=== PATIENT | male | born 1965 | race Caucasian/White ===

== ENCOUNTER 2019-12-08 09:37 | Day surgery (SDC) | payer BC ==
[2019-12-07 09:57] VITALS: BMI 34.1
--- NOTE | 2019-12-07 10:46 | HP ---
HISTORY AND PHYSICAL CHIEF COMPLAINT: Right knee pain. 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 It has worsened recently. She notes intermittent giving way along with swelling. He has had multiple aspirations of the knee with temporary relief. He has also been on anti-inflammatories with temporary relief. PAST MEDICAL HISTORY: Negative. PAST SURGICAL HISTORY: Negative. CURRENT MEDICATIONS: Ibuprofen. He notes allergies to CODEINE. FAMILY HISTORY: Significant for cancer. SOCIAL HISTORY: Significant for 1 pack per day tobacco use. He also admits to social alcohol use. 16 POINT REVIEW OF SYSTEMS: Otherwise reviewed and is noncontributory. PHYSICAL EXAMINATION: On examination, the patient is approximately 5 foot 5, 200 pounds of endomorphic habitus. HEENT: Exam is nonfocal. NECK: Supple. He has painless passive motion of the right hip. Straight leg raise is negative, active motion right knee -10 to 115 degrees of flexion. He has a mild effusion. He is tender about the medial joint line. Collaterals are stable, Andrew is negative, Shawnee's elicits medial pain. His distal neurovascular appears intact in the right lower extremity. MRI report of the right knee shows evidence of a posterior medial meniscal tear along with medial compartment degenerative changes. There are also patellofemoral degenerative changes. IMPRESSION: 1. Right knee internal derangement with symptomatic medial meniscal tear. 2. Right knee medial and patellofemoral compartment osteoarthrosis. RECOMMENDATIONS: I talked to the patient at length regarding his condition and treatment options. At this point, he is having significant pain and mechanical symptoms despite previous conservative measures that limit him. After thorough discussion, he opts to proceed with surgery. We will plan to proceed with arthroscopy of the right knee with possible partial medial meniscectomy. Risks and benefits were discussed at length in layman's terms. We will likely perform that as an outpatient procedure. MMODL / IJN: [id number] /
[~2019-12-08 09:37] MED LIST: DEXAMETHASONE SOD PHOSPHATE 10 MG/ML 1 ML VIAL IV ONE; LACTATED RINGERS 1,000 ML IV SCH; LIDOCAINE 1% (10MG/ML) FOR IV START INTRADERMA PRN; MIDAZOLAM 2 MG/2 ML VIAL IV PRN; ONDANSETRON 4 MG/2 ML VIAL IVP ONE
[2019-12-08 10:52] VITALS: TEMP 98.2
[2019-12-08] MEDS ORDERED: MIDAZOLAM 2 MG/2 ML VIAL ONE (12:13)
[2019-12-08] MEDS ORDERED: LIDOCAINE 1% INJ 10MG/ML (20 ML MDV) ONE (12:13)
[2019-12-08] MEDS ORDERED: PHENYLEPHRINE-0.9% NACL SYG 1 MG/10 ML SYRINGE ONE (12:13)
[2019-12-08] MEDS ORDERED: fentaNYL (PF) 50 MCG/ML 2 ML AMP ONE (12:13)
[2019-12-08] MEDS ORDERED: PROPOFOL 10 MG/ML 20 ML VIAL IV ONE (12:13)
[2019-12-08] MEDS ORDERED: SUCCINYLCHOLINE CHLORIDE 100 MG/5 ML SYR IV ONE (12:13)
--- NOTE | 2019-12-08 13:13 | P.OP ---
Date of Procedure: 12/08/19 Preoperative Diagnosis: Right knee symptomatic medial meniscal tear Postoperative Diagnosis: Posterior medial meniscal tear along with chondrocalcinosis of the medial, lateral and patellofemoral compartments Procedure(s) Performed: Right knee arthroscopic partial medial meniscectomy/partial synovectomy of the medial, lateral, and patellofemoral compartments Anesthesia: FLORINA Surgeon: Francois Acosta Estimated Blood Loss (ml): 10 Pathology: none sent Condition: stable Disposition: PACU Indications for Procedure: The patient's a 54-year-old male presents with progressive right knee pain and mechanical symptoms despite conservative treatment. A discussion of the risks and benefits of operative intervention versus continued conservative measures was made with patient. He opted to proceed with surgery. Operative risks to include infection, neurovascular injury, development of blood clots, possible incomplete resolution of symptoms, possible worsening symptoms and need for subsequent procedures was discussed. Informed consent was obtained. Operative Findings: As below Description of Procedure: The patient was brought to the operating room, and after induction of general anesthesia examined the right knee. Collaterals were stable, Andrew was negative, and posterior drawer was negative. The right lower extremity was prepped and draped in a normal fashion. A superior lateral portal was made through a 3 mm skin incision superior and lateral to the patella. This was used for outflow. A lateral portal was made through a 5 mm vertical skin incision lateral to the patella tendon above the joint line. Diagnostic arthroscopy was performed. On inspection of the medial compartment, a complex tear involving the posterior horn of the medial meniscus in the white-red junction was noted.. This was debrided back to stable base with straight baskets and a motorized shaver. A 0.5 x 0.5 cm loose body was noted in the posterior lateral back to the medial compartment. This was removed with a grasper. Chondrocalcinosis was noted was significant synovitis of the medial, lateral, and patellofemoral compartments. This was debrided with a motorized shaver. On inspection of the notch, the anterior cruciate ligament appeared to be intact. On inspection of the lateral compartment, again there was chondrocalcinosis and reactive synovitis. The lateral meniscus was stable and intact. On inspection of the patellofemoral articulation, there was reactive synovitis and chondral fibrillation.. The gutters were clear debris. The knee was then thoroughly irrigated. The portals were closed with Steri-Strips. A sterile dressing was applied in addition to a compression stocking. The patient was awoken from general anesthesia and transferred to recovery room in good condition. Blood loss was estimated at 10 mL. No complications were incurred.
[2019-12-08] MEDS: HYDROmorphone 0.5 MG/0.5 ML SYRINGE IVP PRN ×3 (13:24→13:35)
[2019-12-08] MEDS ORDERED: KETOROLAC 30 MG/ML 1 ML VIAL IVP ONE (13:40)
[2019-12-08] MEDS: fentaNYL (PF) 50 MCG/ML 2 ML AMP IVP ONE ×2 (13:40→13:50)
[2019-12-08 14:33] VITALS: RESP 16
[2019-12-08] MEDS ORDERED: HYDROcodone/APAP 7.5-325MG 1 EACH TAB PO ONE (14:49)
[2019-12-08 15:08] VITALS: BP 130/73; PULSE 77
== END 2019-12-08 15:26 | disposition home or self-care (01) ==
LOC: OR 09:37
PROVIDERS: ATTEND Orthopaedic Surgery
DX: S83.241A Other tear of medial meniscus, current injury, right knee, initial encounter (principal); X58.XXXA Exposure to other specified factors, initial encounter; M11.261 Other chondrocalcinosis, right knee; K21.9 Gastro-esophageal reflux disease without esophagitis; Z80.9 Family history of malignant neoplasm, unspecified; F17.210 Nicotine dependence, cigarettes, uncomplicated; I10 Essential (primary) hypertension; G47.33 Obstructive sleep apnea (adult) (pediatric); Z99.89 Dependence on other enabling machines and devices; E66.9 Obesity, unspecified; Z68.34 Body mass index [BMI] 34.0-34.9, adult; Z79.899 Other long term (current) drug therapy; Z79.1 Long term (current) use of non-steroidal anti-inflammatories (NSAID); Z88.5 Allergy status to narcotic agent
CPT/HCPCS: 29881; 29876; J2250; J1100; J0690; J2405; J2001; J3010; J1885; J2370; J0330; J2704; J1170

== ENCOUNTER → 2020-02-19 | Outpatient (CLI) | payer BC ==
--- NOTE | 2020-02-21 12:01 | MR ---
EXAMINATION TYPE: MR knee LT wo con DATE OF EXAM: 02/19/2020 COMPARISON: Left knee January 21, 2020. HISTORY: Left knee and her pain with locking and swelling for 1 year per patient, history of prior in the surgery per patient TECHNIQUE: Multiplanar, multisequence images of the knee is performed without IV contrast. FINDINGS: MEDIAL MENISCUS: Anterior horn is intact without tear. There is oblique irregular increased signal wi th vertical component posterior horn medial meniscus extending to superior articular surface sagittal image 26 and coronal image 21. LATERAL MENISCUS: Anterior and posterior horns are intact without tear. CRUCIATE LIGAMENTS: The anterior and posterior cruciate ligaments are intact and unremarkable. COLLATERAL LIGAMENTS: The medial collateral ligament and lateral collateral ligament complex are inta ct and unremarkable. EXTENSOR MECHANISM: Visualized quadriceps and patellar tendons are intact. EFFUSION: There is moderate size suprapatellar joint effusion. POPLITEAL CYST: There is moderate size popliteal/bowers cyst measuring 5.7 cm long axis sagittal image 26. TRICOMPARTMENT SPACES: Mild to moderate narrowing patellofemoral compartment with [id number] sp urring. Mild narrowing medial and lateral tibiofemoral compartments. CARTILAGE: Some chondromalacia patella with some fissuring and cartilaginous loss along the posterior patellar pole. Cartilage fairly well-preserved medial and lateral tibiofemoral compartments. BONE MARROW SIGNAL: No focal abnormal marrow signal is appreciated. OTHER: No additional significant abnormality is appreciated. IMPRESSION: 1. Complex full-thickness tear posterior horn of medial meniscus. 2. Tricompartment degenerative changes greatest patellofemoral compartment where fairly moderate in a ppearance as detailed above. 3. Moderate-sized suprapatellar joint effusion. 4. Moderate sized popliteal cyst.
== END | disposition home or self-care (01) ==
LOC: RADMRIMAIN 07:48
PROVIDERS: ATTEND Orthopaedic Surgery
DX: S83.232A Complex tear of medial meniscus, current injury, left knee, initial encounter (principal); M17.12 Unilateral primary osteoarthritis, left knee

== ENCOUNTER 2020-03-04 08:42 | Day surgery (SDC) | payer BC ==
[2020-03-02 10:54] VITALS: BMI 33.0
--- NOTE | 2020-03-03 09:16 | HP ---
HISTORY AND PHYSICAL CHIEF COMPLAINT: Left knee pain. 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 He notes medial pain along with giving way. He has had intermittent large swelling. He has tried medications in addition to home exercises and anti- inflammatories and injections without much relief. PAST MEDICAL HISTORY: Negative. PAST SURGICAL HISTORY: Significant for right knee arthroscopy. CURRENT MEDICATION: Ibuprofen. He has allergies to CODEINE. FAMILY HISTORY: Significant for cancer. SOCIAL HISTORY: Significant for 1 pack per day tobacco use and social alcohol use. 16 POINT REVIEW OF SYSTEMS: Otherwise reviewed and is noncontributory. PHYSICAL EXAMINATION: On examination, the patient is approximately 5 foot 5, 205 pounds of endomorphic habitus. HEENT: Exam is nonfocal. NECK: Supple. He has painless passive motion left hip. Straight leg raise is negative. Active motion left knee -10 to 115 degrees of flexion. He has mild effusion. He is tender about the medial joint line. Collaterals are stable, Andrew is negative, Shawnee's elicits medial pain. He has genu varum alignment. His distal neurovascular appears intact in the left lower extremity. MRI report 02/19/2020, left knee shows a posterior medial meniscal tear along with degenerative changes involving the medial and patellofemoral compartments. IMPRESSION: Left knee internal derangement with symptomatic medial meniscal tear. RECOMMENDATIONS: I talked to the patient at length regarding his condition along with treatment options. At this point, he is having significant pain and mechanical symptoms along with giving way despite conservative measures. After thorough discussion, he opts to proceed with surgery. We will plan to proceed with arthroscopic evaluation with probable partial medial meniscectomy. The risks and benefits were discussed at length in layman's terms. We will likely perform that as an outpatient procedure. MMODL / IJN: [id number] /
[~2020-03-04 08:42] MED LIST changes: +HYDROmorphone 0.5 MG/0.5 ML SYRINGE IVP PRN; +fentaNYL (PF) 50 MCG/ML 2 ML AMP IVP PRN
[2020-03-04] MEDS ORDERED: MIDAZOLAM 2 MG/2 ML VIAL ONE (09:20)
[2020-03-04] MEDS ORDERED: KETOROLAC 15 MG/ML 1 ML VIAL ONE (09:20)
[2020-03-04] MEDS ORDERED: GLYCOPYRROLATE 0.2 MG/ML 2 ML VIAL ONE (09:20)
[2020-03-04] MEDS ORDERED: NEOSTIGMINE 1 MG/ML 10 ML VIAL ONE (09:20)
[2020-03-04] MEDS ORDERED: fentaNYL (PF) 50 MCG/ML 2 ML AMP ONE (09:20)
[2020-03-04] MEDS ORDERED: ROCURONIUM BROMIDE 10 MG/ML 5 ML VIAL IV ONE (09:20)
[2020-03-04] MEDS ORDERED: PROPOFOL 10 MG/ML 20 ML VIAL IV ONE (09:20)
[2020-03-04] MEDS ORDERED: SUCCINYLCHOLINE CHLORIDE 100 MG/5 ML SYR IV ONE (09:20)
[2020-03-04] MEDS ORDERED: LIDOCAINE 1% INJ 10MG/ML (20 ML MDV) ONE (09:20)
--- NOTE | 2020-03-04 10:14 | P.OP ---
Date of Procedure: 03/04/20 Preoperative Diagnosis: Left knee internal derangementchondrocalcinosis Postoperative Diagnosis: Same in addition to posterior medial meniscal tear/synovitis Procedure(s) Performed: Left knee arthroscopic partial medial meniscectomy/partial synovectomy of the medial, lateral, and patellofemoral compartments. Anesthesia: GETA Surgeon: Francois Acosta Estimated Blood Loss (ml): 5 Pathology: none sent Condition: stable Disposition: PACU Indications for Procedure: The patient's a 55-year-old gentleman who presents with progressive left knee pain/swelling/mechanical symptoms despite conservative measures. A discussion of the risks and benefits of operative intervention versus continued conservative measures made with patient. He opted to proceed with surgery. Operative risks to include infection, neurovascular injury, development of blood clots, possible incomplete resolution of symptoms, possible worsening symptoms and need for subsequent procedures was discussed. Informed consent was obtained. Operative Findings: As below Description of Procedure: The patient was brought to the operating room, and after induction of general anesthesia examined the left knee. Collaterals were stable, Andrew was negativ e, and posterior drawer was negative. The left lower extremity was prepped and draped in a normal fashion. A superior lateral portal was made through a 3 mm skin incision superior and lateral to the patella. This was used for outflow. A lateral portal was made through a 5 mm vertical skin incision lateral to the patella tendon above the joint line. Diagnostic arthroscopy was performed. On inspection of the medial compartment, a complex tear involving the posterior horn of the medial meniscus in the white-white junction was noted. This was debrided back to stable base with straight baskets and a motorized shaver. There was marked chondrocalcinosis involving the chondral surface and the meniscus in addition to marked synovitis. Partial synovectomy was then performed with a motorized shaver for the medial, lateral, and patellofemoral compartments. On inspection of the notch, the anterior cruciate ligament appeared to be intact. On inspection of the lateral compartment, again there was marked synovitis was debrided with a motorized shaver. A degenerative type tear involving the middle one third of the lateral meniscus in the white-white junction was noted. This was debrided back to stable base with a motorized shaver. The remaining lateral meniscus was stable and intact On inspection of the patellofemoral articulation, there was chondral fibrillation and chondrocalcinosis along with marked synovitis. This was debrided with a motorized shaver. The gutters were clear debris. The knee was then thoroughly irrigated. The portals were closed with Steri-Strips. A sterile dressing was applied in addition to a compression stocking. The patient was awoken from general anesthesia and transferred to recovery room in good condition. Blood loss was estimated at 5 mL. No complications were incurred.
[2020-03-04 10:27] VITALS: TEMP 96.8
[2020-03-04] MEDS ORDERED: KETOROLAC 15 MG/ML 1 ML VIAL IVP ONE (10:43)
[2020-03-04 11:17] VITALS: RESP 16
[2020-03-04] MEDS ORDERED: HYDROcodone/APAP 10-325MG 1 EACH TAB ONE (11:44)
[2020-03-04] MEDS ORDERED: HYDROcodone/APAP 10-325MG 1 EACH TAB PO ONE (11:46)
[2020-03-04 12:21] VITALS: BP 147/85; PULSE 86
== END 2020-03-04 12:22 | disposition home or self-care (01) ==
LOC: OR 08:42
PROVIDERS: ATTEND Orthopaedic Surgery
DX: M23.8X2 Other internal derangements of left knee (principal); M11.262 Other chondrocalcinosis, left knee; M23.222 Derangement of posterior horn of medial meniscus due to old tear or injury, left knee; M23.201 Derangement of unspecified lateral meniscus due to old tear or injury, left knee; M65.862 Other synovitis and tenosynovitis, left lower leg; M17.12 Unilateral primary osteoarthritis, left knee; F17.210 Nicotine dependence, cigarettes, uncomplicated; K08.89 Other specified disorders of teeth and supporting structures; I10 Essential (primary) hypertension; N42.9 Disorder of prostate, unspecified; K21.9 Gastro-esophageal reflux disease without esophagitis; Z98.890 Other specified postprocedural states; Z79.1 Long term (current) use of non-steroidal anti-inflammatories (NSAID); Z88.5 Allergy status to narcotic agent; Z79.899 Other long term (current) drug therapy; Z80.9 Family history of malignant neoplasm, unspecified
CPT/HCPCS: 29880; J2250; J1100; J2710; J0690; J2001; J3010; J1885; J0330; J2704; J1170